=== PATIENT | male | born 1945 | race Caucasian/White ===

== ENCOUNTER 2016-10-02 07:26 | Day surgery (SDC) | payer MEDICARE ==
[~2016-10-02 07:26] MED LIST: CYCLOPENTOLATE 1% OPHTH DROPS 2 ML OPTH ONE; KETOROLAC 0.45% OPHTH DROPS OPTH ONE; PHENYLEPHRINE 2.5% OPHTH 2 ML DROPS ONE; PHENYLEPHRINE 2.5% OPHTH 2 ML DROPS OPTH ONE; PROPARACAINE 0.5% OPHTH DROPS 15 ML OPTH ONE
[2016-10-02] MEDS ORDERED: BSS/LIDOCAINE/EPINEPHRINE 1 ML SYRINGE IO ONE ×2 (07:41)
[2016-10-02] MEDS ORDERED: TRIAMCIN/MOXIFLOX/VANCO 1 ML VIAL IO ONE ×2 (07:41)
[2016-10-02] MEDS ORDERED: PROPARACAINE 0.5% OPHTH DROPS 15 ML OPTH ONE (07:41)
[2016-10-02] MEDS ORDERED: CHONDR SULF/HYALURONATE SYRINGE IO ONE (07:41)
[2016-10-02] MEDS ORDERED: TIMOLOL 0.5% OPHTH DROPS OPTH ONE (07:41)
[2016-10-02] MEDS ORDERED: EPINEPHrine 1 MG/ML AMP IVP ONE (07:41)
[2016-10-02] MEDS ORDERED: BRIMONIDINE 0.2% OPHTH DROPS 5 ML OPTH ONE (07:41)
[2016-10-02] MEDS ORDERED: LACTATED RINGERS 500 ML IV ONE (07:55)
[2016-10-02] MEDS ORDERED: MIDAZOLAM 2 MG/2 ML VIAL IVP ONE (08:46)
[2016-10-02] MEDS ORDERED: PROPOFOL 200 MG/20 ML VIAL IVP ONE (08:46)
[2016-10-02] MEDS ORDERED: LIDOCAINE-MPF 2% 5 ML VIAL IM ONE (08:46)
== END 2016-10-02 07:27 | disposition home or self-care (01) ==
PROC: 08RK3JZ Replacement of Left Lens with Synthetic Substitute, Percutaneous Approach (ICD-10-PCS; principal; 2016-10-02 08:30)
DX: H25.12 Age-related nuclear cataract, left eye (principal); J45.909 Unspecified asthma, uncomplicated; N40.0 Benign prostatic hyperplasia without lower urinary tract symptoms; Z87.891 Personal history of nicotine dependence
CPT/HCPCS: 66984; A9270; V2632

== ENCOUNTER 2016-10-30 08:16 | Day surgery (SDC) | payer MEDICARE ==
[~2016-10-30 08:16] MED LIST changes: -CYCLOPENTOLATE 1% OPHTH DROPS 2 ML OPTH ONE; -KETOROLAC 0.45% OPHTH DROPS OPTH ONE; -PHENYLEPHRINE 2.5% OPHTH 2 ML DROPS OPTH ONE; -PROPARACAINE 0.5% OPHTH DROPS 15 ML OPTH ONE
[2016-10-30] MEDS ORDERED: LACTATED RINGERS 500 ML IV ONE (08:36)
[2016-10-30] MEDS ORDERED: CYCLOPENTOLATE 1% OPHTH DROPS 2 ML OPTH ONE (08:44)
[2016-10-30] MEDS ORDERED: PHENYLEPHRINE 2.5% OPHTH 2 ML DROPS OPTH ONE (08:44)
[2016-10-30] MEDS ORDERED: PROPARACAINE 0.5% OPHTH DROPS 15 ML OPTH ONE ×3 (08:44→09:13)
[2016-10-30] MEDS ORDERED: KETOROLAC 0.45% OPHTH DROPS OPTH ONE (08:44)
[2016-10-30] MEDS ORDERED: MIDAZOLAM 2 MG/2 ML VIAL IVP ONE (09:03)
[2016-10-30] MEDS ORDERED: TIMOLOL 0.5% OPHTH DROPS OPTH ONE ×2 (09:08→09:13)
[2016-10-30] MEDS ORDERED: TRIAMCIN/MOXIFLOX/VANCO 1 ML VIAL IO ONE ×2 (09:08→09:13)
[2016-10-30] MEDS ORDERED: EPINEPHrine 1 MG/ML AMP IVP ONE ×3 (09:08→09:13)
[2016-10-30] MEDS ORDERED: BRIMONIDINE 0.2% OPHTH DROPS 5 ML OPTH ONE ×2 (09:08→09:13)
[2016-10-30] MEDS ORDERED: CHONDR SULF/HYALURONATE SYRINGE IO ONE ×2 (09:08→09:13)
[2016-10-30] MEDS ORDERED: BSS/LIDOCAINE/EPINEPHRINE 1 ML SYRINGE IO ONE ×2 (09:08→09:13)
--- NOTE | 2016-10-30 09:49 | OPERATIVE REPORT ---
DATE OF SURGERY: 10/30/2016 00:00:00 PREOPERATIVE DIAGNOSIS: Visually significant cataract, right eye. Cataract surgery was performed on t he left eye on 10/02/2016. POSTOPERATIVE DIAGNOSIS: Visually significant cataract, right eye. Cataract surgery was performed on the left eye on 10/02/2016. NAME OF PROCEDURE: Phacoemulsification posterior chamber intraocular lens implant, right eye. SURGEON: Hector Starr MD. ANESTHESIA: Monitored anesthesia care. COMPLICATIONS: None. OPERATIVE INDICATIONS: This is a 71-year-old man with progressive vision loss in the right eye due to 2+ nuclear sclerotic cataract. Best corrected visual acuity was 20/20 with glare to 20/125 in the ri ght eye. Indications for surgery were overall decrease in vision, difficulty seeing words on a comput er screen, difficulty reading, difficulty seeing words and game scores on TV, difficulty reading stre et signs, difficulty driving in low light or at night, difficulty driving at night because of head li ghts, difficulty with glare or bright lights in any situation, difficulty tracking a golf ball and de creased acuity with firearms. He was consented at length concerning the risks and benefits of catarac t surgery, after which he expressed a desire to proceed with surgery. OPERATIVE PROCEDURE: The patient was taken into OR #2 and placed under monitored anesthesia care. A s urgical time-out was conducted confirming the correct patient, correct procedure and correct surgical site. He was given topical anesthesia and then prepped and draped in the usual sterile fashion. The eye was entered at the 12 and 9 o'clock positions. Intracameral Shugarcaine was injected into the ant erior chamber followed by Viscoat. A continuous tear curvilinear capsulorrhexis was performed. The nu cleus was hydrodissected and phacoemulsified. The cortex was evacuated using automated infusion aspir ation. Provisc was injected into the capsular bag and a 7.0 diopter intraocular lens was inserted int o the bag. Approximately 0.8 mL of a mixture of triamcinolone, moxifloxacin, and vancomycin was injec rich subconjunctivally in the superior quadrant for infection prophylaxis. I/A was used to evacuate th e viscoelastic materials. The eye was inflated to a physiologic pressure using balanced salt solution and found to be watertight. The patient was taken from the operating room in good condition and give n postoperative instructions. JOB #: [id number] EXT JOB #:[id number]
[2016-10-30 09:58] VITALS: BP 111/93
== END 2016-10-30 08:17 | disposition home or self-care (01) ==
LOC: SDS 08:16
PROVIDERS: ATTEND Ophthalmology
PROC: 08RJ3JZ Replacement of Right Lens with Synthetic Substitute, Percutaneous Approach (ICD-10-PCS; principal; 2016-10-30 09:30)
DX: H25.11 Age-related nuclear cataract, right eye (principal); Z90.49 Acquired absence of other specified parts of digestive tract; J45.909 Unspecified asthma, uncomplicated
CPT/HCPCS: 66984; A9270

== ENCOUNTER 2017-08-28 10:09 | Outpatient (CLI) | payer MEDICARE ==
[2017-08-28 18:27] LABS: ALBUMIN 4.2 g/dL (3.2-5.5); ALBUMIN/GLOBULIN RATIO 1.2 (1.0-2.2); ALKALINE PHOSPHATASE 56 IU/L (42-121); ALT ALANINE AMINOTRANSFERASE 27 IU/L (10-60); AST ASPARTATE AMINOTRANSFERASE 21 IU/L (10-42); BILIRUBIN,TOTAL 0.6 mg/dL (0.2-1.0); BUN - BLOOD UREA NITROGEN 12 mg/dL (6-20); CALCIUM 9.4 mg/dL (8.5-10.3); CARBON DIOXIDE - CO2 27 mmol/L (21-32); CHLORIDE 103 mmol/L (101-111); CHOL/HDL RATIO 4.2 (<5.0); CHOLESTEROL 161 mg/dL; GFR - MDRD 74 (>89); GLUCOSE 103 mg/dL (70-100); HDL CHOLESTEROL 38 mg/dL; LDL CHOLESTEROL,CALCULATED 97 mg/dL; LDL/HDL RATIO 2.6 (<3.6); SODIUM 135 mmol/L (135-145); TOTAL PROTEIN 7.7 g/dL (6.7-8.2); VLDL CHOLESTEROL 26 mg/dL
== END 2017-08-28 10:10 | disposition home or self-care (01) ==
LOC: LAB.F 10:09
PROVIDERS: ATTEND Internal Medicine
DX: E78.00 Pure hypercholesterolemia, unspecified (principal)
CPT/HCPCS: 36415; 80053; 80061; 83721

== ENCOUNTER 2017-10-01 09:05 | Outpatient (CLI) | payer MEDICARE ==
[2017-10-01] MEDS ORDERED: IOPAMIDOL-300 100 ML VIAL ONE (09:30)
[2017-10-01] MEDS ORDERED: IOPAMIDOL-300 100 ML VIAL IVP ONE (10:39)
--- NOTE | 2017-10-01 14:49 | CT Report ---
EXAM: CT SOFT TISSUE NECK WITH CONTRAST. EXAM DATE: 10/01/2017 10:38 AM. HISTORY: Right tonsil swelling. Occasional loss of taste. COMPARISONS: None. TECHNIQUE: Routine soft tissue neck CT protocol. Reconstructions: Coronal and sagittal. IV contrast: 80 mL Isovue 300. In accordance with CT protocol optimization, one or more of the following dose reduction techniques w ere utilized for this exam: automated exposure control, adjustment of mA and/or KV based on patient s ize, or use of iterative reconstructive technique. FINDINGS: Asymmetric masslike enlargement of the right palatine tonsil. This region of masslike enlargement kelly sures 2.3 x 2.8 x 3.2 cm. Laterally, this masslike enlargement protrudes toward the right submandibul ar gland and laterally displaces the peritonsillar tissue planes, but there is no clear evidence for other acute inflammatory changes or adjacent stranding. Anteriorly, this region of masslike fullness abuts the right lateral posterior tongue base with effacement of the upper right glossotonsillar sulc us contours. No focal calcification or loculated fluid collection. No cervical adenopathy. Unremarkable appearance of the parotid and submandibular salivary glands. Sma ll nonspecific focus of nodular calcification in the inferior left thyroid gland measuring about 7-8 mm. Mild to moderate multifocal paranasal sinus mucosal thickening. Clear mastoids. Mild degenerative raul nges in cervical spine appear chronic. Grossly clear lung apices. IMPRESSION: 1. Asymmetric masslike enhancement of soft tissues in the region of the right palatine tonsil. This i s nonspecific. 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 The differential could include residua of previous infection. 2. If symptoms persist or worsen, right tonsil biopsy is advised as neoplasm may contribute to the cu rrent appearance. [facility] Referring Provider Line: [phone] SITE ID: [id number]
== END 2017-10-01 09:06 | disposition home or self-care (01) ==
LOC: DI 09:05
PROVIDERS: ATTEND Physician Assistant
DX: J35.8 Other chronic diseases of tonsils and adenoids (principal)
CPT/HCPCS: 70491; Q9967

== ENCOUNTER 2021-01-03 08:00 | Outpatient (CLI) | payer MEDICARE | END 2021-01-03 23:59 | disposition home or self-care (01) | LOC: LAB.R 08:00 | PROVIDERS: ATTEND Emergency Medicine | DX: B34.9 Viral infection, unspecified (principal); Z20.822 Contact with and (suspected) exposure to COVID-19 ==

== ENCOUNTER 2021-01-22 07:56 | Outpatient (CLI) | payer MEDICARE ==
--- NOTE | 2021-01-22 08:24 | XRAY Report ---
PROCEDURE: Lumbar Spine 2 View INDICATIONS: LUMBAR RADICULOPATHY,RIGHT TECHNIQUE: 3 views of the lumbar spine were acquired. COMPARISON: None. FINDINGS: Bones: 5 [id number] vertebrae are present. There is grade 1 anterolisthesis of L4 on L5. Degen erative endplate changes and mild bilateral facet arthrosis throughout lumbar spine is seen more prom inent at L3-4 and L4-5 levels.. No vertebral body compression fractures. No suspicious bony lesions . Soft tissues: Overlying bowel gas pattern is normal. No suspicious soft tissue calcifications. IMPRESSION: Grade 1 anterolisthesis of L4 on L5. Mild degenerative disc disease throughout lumbar sp ine. No acute compression fracture. Reviewed by: Domingo Rasmussen MD on 01/22/2021 8:23 AM PDT Approved by: Domingo Rasmussen MD on 01/22/2021 8:23 AM PDT Station ID: [id number]
[2021-01-22 14:37] LABS: BASOPHILS # (AUTO) 0.1 10^3/uL (0.0-0.1); BASOPHILS % (AUTO) 2.2 %; EOSINOPHILS # (AUTO) 0.4 10^3/uL (0.0-0.7); EOSINOPHILS % (AUTO) 10.1 %; HCT - HEMATOCRIT 39.8 % (42.0-52.0); LYMPHOCYTES # (AUTO) 0.4 10^3/uL (1.5-3.5); LYMPHOCYTES % (AUTO) 12.1 %; MEAN CORPUSCULAR HEMOGLOBIN 31.4 pg (27.0-31.0); MEAN CORPUSCULAR HGB CONC 32.7 g/dL (32.0-36.0); MEAN CORPUSCULAR VOLUME 96.1 fL (80.0-94.0); MEAN PLATELET VOLUME 8.6 fL (7.4-11.4); MONOCYTES # (AUTO) 0.3 10^3/uL (0.0-1.0); MONOCYTES % (AUTO) 7.4 %; NEUTROPHILS # (AUTO) 2.5 10^3/uL (1.5-6.6); NEUTROPHILS % (AUTO) 67.4 %; PLT - PLATELET COUNT 280 10^3/uL (130-450); RED BLOOD COUNT 4.14 10^6/uL (4.70-6.10); RED CELL DISTRIBUTION WIDTH 14.2 % (12.0-15.0); WHITE BLOOD COUNT 3.7 x10^3/uL (4.8-10.8)
[2021-01-22 16:10] LABS: ALBUMIN 3.9 g/dL (3.2-5.5); ALBUMIN/GLOBULIN RATIO 1.1 (1.0-2.2); ALKALINE PHOSPHATASE 50 IU/L (42-121); ALT ALANINE AMINOTRANSFERASE 30 IU/L (10-60); AST ASPARTATE AMINOTRANSFERASE 22 IU/L (10-42); BILIRUBIN,TOTAL 0.8 mg/dL (0.2-1.0); BUN - BLOOD UREA NITROGEN 16 mg/dL (6-20); CARBON DIOXIDE - CO2 27 mmol/L (21-32); CHLORIDE 97 mmol/L (101-111); CHOL/HDL RATIO 3.2 (<5.0); CHOLESTEROL 140 mg/dL; CREATININE 0.8 mg/dL (0.6-1.2); GFR - MDRD 94 (>89); GLUCOSE 99 mg/dL (70-100); HDL CHOLESTEROL 44 mg/dL; LDL CHOLESTEROL,CALCULATED 73 mg/dL; LDL/HDL RATIO 1.7 (<3.6); POTASSIUM 4.2 mmol/L (3.5-5.0); SODIUM 130 mmol/L (135-145); TOTAL PROTEIN 7.3 g/dL (6.7-8.2); TRIGLYCERIDES 114 mg/dL; VLDL CHOLESTEROL 23 mg/dL
[2021-01-22 16:21] LABS: CRP - C-REACTIVE PROTEIN < 1.0 mg/dL (0-1.0)
[2021-01-24 09:51] LABS: ANA SCREEN NEGATIVE (NEGATIVE)
== END 2021-01-22 07:57 | disposition home or self-care (01) ==
LOC: DI.S 07:56
PROVIDERS: ATTEND Registered Nurse
DX: M43.16 Spondylolisthesis, lumbar region (principal); M51.36 Other intervertebral disc degeneration, lumbar region; M47.816 Spondylosis without myelopathy or radiculopathy, lumbar region; M54.16 Radiculopathy, lumbar region; M79.10 Myalgia, unspecified site; M25.50 Pain in unspecified joint; B34.9 Viral infection, unspecified; J45.909 Unspecified asthma, uncomplicated; K21.9 Gastro-esophageal reflux disease without esophagitis
CPT/HCPCS: 36415; 80053; 80061; 83721; 84443; 85025; 86038; 86140

== ENCOUNTER 2021-04-29 09:46 | Outpatient (CLI) | payer MEDICARE ==
[2021-04-29 14:12] LABS: BASOPHILS % (AUTO) 1.2 %; EOSINOPHILS # (AUTO) 0.3 10^3/uL (0.0-0.7); EOSINOPHILS % (AUTO) 8.3 %; HCT - HEMATOCRIT 41.7 % (42.0-52.0); HGB - HEMOGLOBIN 13.7 g/dL (14.0-18.0); LYMPHOCYTES # (AUTO) 0.6 10^3/uL (1.5-3.5); LYMPHOCYTES % (AUTO) 16.2 %; MEAN CORPUSCULAR HEMOGLOBIN 31.6 pg (27.0-31.0); MEAN CORPUSCULAR HGB CONC 32.9 g/dL (32.0-36.0); MEAN CORPUSCULAR VOLUME 96.3 fL (80.0-94.0); MEAN PLATELET VOLUME 9.2 fL (7.4-11.4); MONOCYTES # (AUTO) 0.3 10^3/uL (0.0-1.0); NEUTROPHILS # (AUTO) 2.2 10^3/uL (1.5-6.6); NEUTROPHILS % (AUTO) 64.3 %; PLT - PLATELET COUNT 232 10^3/uL (130-450); RED BLOOD COUNT 4.33 10^6/uL (4.70-6.10); RED CELL DISTRIBUTION WIDTH 12.9 % (12.0-15.0); WHITE BLOOD COUNT 3.4 x10^3/uL (4.8-10.8)
[2021-04-29 15:46] LABS: ALBUMIN 4.1 g/dL (3.2-5.5); ALBUMIN/GLOBULIN RATIO 1.2 (1.0-2.2); BILIRUBIN,TOTAL 0.4 mg/dL (0.2-1.0); CALCIUM 9.5 mg/dL (8.5-10.3); CREATININE 0.9 mg/dL (0.6-1.2); POTASSIUM 4.1 mmol/L (3.5-5.0); TOTAL PROTEIN 7.6 g/dL (6.7-8.2)
[2021-04-29 16:44] LABS: RHEUMATOID FACTOR NEGATIVE (Negative)
[2021-05-01 10:46] LABS: IMMUNOGLOBULIN A 131 mg/dL (70-320); IMMUNOGLOBULIN G 1804 mg/dL (600-1540); IMMUNOGLOBULIN M 87 mg/dL (50-300)
== END 2021-04-29 09:47 | disposition home or self-care (01) ==
LOC: LAB.S 09:46
PROVIDERS: ATTEND Internal Medicine
DX: E87.1 Hypo-osmolality and hyponatremia (principal); D72.819 Decreased white blood cell count, unspecified; R68.82 Decreased libido; M25.50 Pain in unspecified joint
CPT/HCPCS: 36415; 80053; 81599; 82784; 84146; 84402; 84403; 85025; 86430

== ENCOUNTER 2022-03-19 09:51 | Outpatient (CLI) | payer MEDICARE ==
[2022-03-19 14:13] LABS: BASOPHILS # (AUTO) 0.1 10^3/uL (0.0-0.1); BASOPHILS % (AUTO) 1.4 %; EOSINOPHILS # (AUTO) 0.3 10^3/uL (0.0-0.7); EOSINOPHILS % (AUTO) 7.6 %; HCT - HEMATOCRIT 43.1 % (42.0-52.0); HGB - HEMOGLOBIN 14.2 g/dL (14.0-18.0); LYMPHOCYTES # (AUTO) 0.5 10^3/uL (1.5-3.5); LYMPHOCYTES % (AUTO) 13.3 %; MEAN CORPUSCULAR HEMOGLOBIN 31.8 pg (27.0-31.0); MEAN CORPUSCULAR HGB CONC 32.9 g/dL (32.0-36.0); MEAN CORPUSCULAR VOLUME 96.6 fL (80.0-94.0); MEAN PLATELET VOLUME 9.7 fL (7.4-11.4); MONOCYTES # (AUTO) 0.4 10^3/uL (0.0-1.0); MONOCYTES % (AUTO) 10.3 %; NEUTROPHILS # (AUTO) 2.5 10^3/uL (1.5-6.6); NEUTROPHILS % (AUTO) 67.1 %; PLT - PLATELET COUNT 228 10^3/uL (130-450); RED BLOOD COUNT 4.46 10^6/uL (4.70-6.10); RED CELL DISTRIBUTION WIDTH 13.2 % (12.0-15.0); WHITE BLOOD COUNT 3.7 x10^3/uL (4.8-10.8)
[2022-03-19 15:11] LABS: THYROID STIMULATING HORMONE 4.81 uIU/mL (0.34-5.60)
[2022-03-19 15:20] LABS: ALBUMIN 4.4 g/dL (3.2-5.5); ALBUMIN/GLOBULIN RATIO 1.2 (1.0-2.2); ALKALINE PHOSPHATASE 58 IU/L (42-121); ALT ALANINE AMINOTRANSFERASE 23 IU/L (10-60); AST ASPARTATE AMINOTRANSFERASE 25 IU/L (10-42); BILIRUBIN,TOTAL 0.6 mg/dL (0.2-1.0); BUN - BLOOD UREA NITROGEN 14 mg/dL (6-20); CALCIUM 10.1 mg/dL (8.5-10.3); CARBON DIOXIDE - CO2 25 mmol/L (21-32); CHLORIDE 105 mmol/L (101-111); CHOLESTEROL 198 mg/dL; CREATININE 1.1 mg/dL (0.6-1.2); GFR - MDRD 65 (>89); GLUCOSE 107 mg/dL (70-100); HDL CHOLESTEROL 49 mg/dL; LDL CHOLESTEROL,CALCULATED 123 mg/dL; LDL/HDL RATIO 2.5 (<3.6); POTASSIUM 4.4 mmol/L (3.5-5.0); SODIUM 136 mmol/L (135-145); TOTAL PROTEIN 8.1 g/dL (6.7-8.2); TRIGLYCERIDES 131 mg/dL; VLDL CHOLESTEROL 26 mg/dL
== END 2022-03-19 09:52 | disposition home or self-care (01) ==
LOC: LAB.S 09:51
PROVIDERS: ATTEND Registered Nurse
DX: Z79.899 Other long term (current) drug therapy (principal); Z13.21 Encounter for screening for nutritional disorder; Z13.220 Encounter for screening for lipoid disorders; Z12.5 Encounter for screening for malignant neoplasm of prostate; Z13.29 Encounter for screening for other suspected endocrine disorder
CPT/HCPCS: 36415; 80053; 80061; 82306; 84443; 85025; G0103; 83721; 84153

== ENCOUNTER 2022-12-12 08:00 | Outpatient (CLI) | payer MEDICARE ==
[2022-12-12 16:19] LABS: BILIRUBIN,URINE NEGATIVE (NEGATIVE); GLUCOSE, URINE (UA) NEGATIVE (NEGATIVE); KETONES,URINE (UA) NEGATIVE (NEGATIVE); LEUKOCYTE ESTERASE, URINE NEGATIVE (NEGATIVE); NITRITE,URINE NEGATIVE (NEGATIVE); OCCULT BLOOD,URINE NEGATIVE (NEGATIVE); PROTEIN,URINE NEGATIVE (NEGATIVE); UROBILINOGEN,URINE 0.2 (NORMAL) E.U./dL (NORMAL)
[2022-12-12 16:21] LABS: CLARITY,URINE CLEAR (CLEAR)
[2022-12-12 16:38] LABS: BACTERIA,URINE None Seen /HPF (None Seen); EPITHELIAL CELLS,UR RARE Transitional /HPF (<= Few); RBC,URINE None Seen /HPF (0-5); SQUAMOUS EPITHELIAL CELL,UR NONE SEEN (<= Few); WBC,URINE 0-3 /HPF (0-3)
== END 2022-12-12 23:59 | disposition home or self-care (01) ==
LOC: LAB.R 08:00
PROVIDERS: ATTEND Urology
DX: Z87.448 Personal history of other diseases of urinary system (principal)
CPT/HCPCS: 81001; 87086